=== PATIENT | female | born 1995 | race African-American/Black ===

== ENCOUNTER 2016-12-24 18:31 | Emergency (ER) | payer OTHER ==
[~2016-12-24] VITALS: Ht 154.9 cm; Wt 47.6 kg
--- NOTE | ~2016-12-24 | EKG ---
[place] [address] [facility] [place] [address] ELECTROCARDIOGRAM REPORT Name: BUNNY HURST Room #: [facility]P [facility] [id number] Admission: 12/24/16 Attend Phys: Discharge: 12/24/16 Date of : [birth year] Report #: [id number] THIS REPORT FOR: //name// [facility] ED Test Date: 2016-12-24 Test Time: 19:07:20 Pat Name: BUNNY HURST Department: Room: Gender: F Computer Drafter: [id number] : 1995 Requested By: Yohan Guillen Order Number: [id number] MD: Drew Narayan Measurements Intervals [place] Rate: 149 P: 77 [place]: 136 QRS: 53 QRSD: 70 T: -12 QT: 263 QTc: 414 Interpretive Statements Sinus tachycardia Otherwise no significant abnormality Baseline wander in lead(s) V6 No previous ECG available for comparison Electronically Signed On 12-25-2016 9:00:56 CDT by Drew Narayan [email or web address] <ELECTRONICALLY SIGNED> By: Drew Narayan MD, [facility] 12/25/16 0900 190 06 Drew Narayan MD, FACC /EPI
[2016-12-24 19:10] LABS: HEMATOCRIT 40.9 % (37.0-47.0); HEMOGLOBIN 13.8 gm/dL (12.0-15.0); MCHC 33.8 g/dL (28.0-37.0); PLATELET COUNT 243 thou/uL (150-400); RBC 5.52 mil/uL (4.20-5.00); WBC 5.4 thou/uL (4.0-11.0)
[2016-12-24 19:11] LABS: MANUAL DIFF YES
[2016-12-24 19:13] LABS: URINE BILIRUBIN 1+ (Negative); URINE BLOOD 1+ (Negative); URINE COLOR YELLOW; URINE GLUCOSE-RANDOM* NEGATIVE (Negative); URINE KETONES TRACE (Negative); URINE LEUKOCYTES-REFLEX NEGATIVE (Negative); URINE PROTEIN (DIPSTICK) 1+ (Negative); URINE SPECIFIC GRAVITY 1.025 (1.003-1.035); URINE UROBILINOGEN 0.2 E.U./dl (0.2-1.0)
[2016-12-24 19:14] LABS: ICTOTEST (BILI CONFIRMATORY) Negative (Negative)
[2016-12-24 19:17] LABS: CALCIUM 8.6 mg/dL (8.5-10.1); CREATININE 0.5 mg/dL (0.6-1.0); POTASSIUM 3.6 mmol/L (3.5-5.1)
[2016-12-24 19:22] LABS: ALBUMIN 3.4 g/dL (3.4-5.0); TOTAL BILIRUBIN 0.4 mg/dL (<0.1-1.0)
[2016-12-24 19:24] LABS: CASTS None Seen /LPF (None Seen); SQUAMOUS 0-3 Few /LPF (0-3); URINE RBC 0-2 Rare /HPF (0-2); URINE WBC-REFLEX 0-5 Rare /HPF (0-5)
[2016-12-24 19:25] LABS: CRYSTALS None Seen /LPF (None Seen)
[2016-12-24 19:30] LABS: ABSOLUTE NEUTROPHILS 3.1 thou/uL (1.4-8.2); MICROCYTES 1+; TOTAL CELL COUNT 100
[2016-12-24 19:49] LABS: AMP/METHAMP Negative (Negative); BARBITURATES Negative (Negative); BENZODIAZEPINES Negative (Negative); COCAINE Negative (Negative); METHADONE Negative (Negative); OPIATES Negative (Negative); PCP Negative (Negative); THC Negative (Negative)
[2016-12-24] MEDS ORDERED: LOPRESSOR50 PO (21:33)
[2016-12-24 22:33] VITALS: BP 136/80
== END 2016-12-24 22:38 | disposition home or self-care (01) ==
LOC: ER 18:31
PROVIDERS: Physician Assistant
DX: E05.90 Thyrotoxicosis, unspecified without thyrotoxic crisis or storm (principal); E87.1 Hypo-osmolality and hyponatremia; R74.0 Nonspecific elevation of levels of transaminase and lactic acid dehydrogenase [LDH]

== ENCOUNTER → 2019-02-25 | Outpatient (CLI) | payer OTHER ==
[~2019-02-25] MED LIST: LOPRESSOR50 PO
== END ==
LOC: ULTRA 12:37
DX: E03.9 Hypothyroidism, unspecified (principal)